=== PATIENT | female | born 1930 | race Two or more races ===

== ENCOUNTER 2016-09-21 00:59 | Inpatient (IN) | payer MEDICARE, OTHER ==
[~2016-09-21] VITALS: Ht 162.6 cm; Wt 96.2 kg
--- NOTE | 2016-09-21 01:05 | NUR ---
TO BED 5 AN 85 YO FEMALE BIBRA WITH C/O "FEVER/CHILLS/BODYACHES/VOMITED X1 SINCE 27." UPON ARRIVAL TO ER, PATIENT IS AAOX2-3, TACHYPNEIC AT 24, 94% ON ROOM AIR, WHEEZES AUSCULTATED ON UPPER AIRWAY, 100.5F TEMP PER OREM, SINUS TACHY ON MONITOR. NONDIAPHORETIC. KEPT HOB ELEVATED. INITIATED COMFORT MEASURES. FAMILY AT BEDSIDE.
--- NOTE | 2016-09-21 01:09 | NUR ---
DR WINTERS AT BEDSIDE TO EVAL.
[2016-09-21] MEDS ORDERED: ALBUTEROL FS 2.5 MG/3 ML VIAL.NEB ONE ×2 (01:18→02:12)
[2016-09-21] MEDS ORDERED: IPRATROPIUM NEB FS 0.5 MG/2.5 ML AMPUL.NEB ONE (01:18)
--- NOTE | 2016-09-21 01:25 | NUR ---
STARTED A SALINE LOCK ON THE RIGHT AC G20, BLOOD DRAWN AND SENT TO LAB.
[2016-09-21] MEDS ORDERED: CHOL100040 PO (01:29)
[2016-09-21] MEDS ORDERED: VENL75CA56 PO (01:29)
[2016-09-21] MEDS ORDERED: PRED5TAB48 PO (01:29)
[2016-09-21] MEDS ORDERED: EZET10TA PO (01:29)
[2016-09-21] MEDS ORDERED: OLME1TAB2 PO (01:29)
[2016-09-21] MEDS ORDERED: SIMV40TA5 PO (01:29)
[2016-09-21] MEDS ORDERED: APIX5TAB PO (01:29)
[2016-09-21] MEDS ORDERED: methylPREDNISolone SOD SUCC 125 MG/2ML VIAL IV ONE (01:30)
[2016-09-21] MEDS ORDERED: IPRATROPIUM NEB FS 0.5 MG/2.5 ML AMPUL.NEB NEB ONE (01:30)
[2016-09-21] MEDS ORDERED: methylPREDNISolone SOD SUCC 125 MG/2ML VIAL ONE (01:30)
[2016-09-21] MEDS ORDERED: ALBUTEROL FS 2.5 MG/3 ML VIAL.NEB CONTNEB ONE ×2 (01:30→03:00)
[2016-09-21] MEDS ORDERED: CEFTRIAXONE 1GM BAG (ER ONLY) 50 ML IV ONE ×2 (01:30)
[2016-09-21] MEDS ORDERED: ACETAMINOPHEN ES 500 MG TABLET PO ONE (01:30)
[2016-09-21] MEDS ORDERED: IV NS 0.9% 1,000 ML BAG IV ONE ×2 (01:30→15:30)
[2016-09-21] MEDS ORDERED: ACETAMINOPHEN ES 500 MG TABLET ONE (01:31)
--- NOTE | 2016-09-21 01:35 | NUR ---
inserted quiles catheter aseptically per Dr Arredondo's order, drained about 80cc of cloudy urine. urine collected and called lab for picker packer.
[2016-09-21 01:38] LABS: EOSINOPHILS # (AUTO) 0.1 /CMM (0.0-0.7); EOSINOPHILS % (AUTO) 0.4 % (0.0-6.0); HEMATOCRIT 33 % (33-45); HEMOGLOBIN 10.7 g/dL (11.5-14.8); LYMPHOCYTES # (AUTO) 1.1 /CMM (0.8-4.8); LYMPHOCYTES % (AUTO) 8.6 % (20.0-44.0); MEAN CORPUSCULAR HEMOGLOBIN 30 PG (26.0-33.0); MEAN CORPUSCULAR HGB CONC 33 g/dl (31.0-36.0); MEAN CORPUSCULAR VOLUME 92 fL (82-100); MONOCYTES # (AUTO) 0.2 /CMM (0.1-1.30); MONOCYTES % (AUTO) 1.3 % (2.0-12.0); NEUTROPHILS # (AUTO) 11.8 /CMM (1.8-8.9); NEUTROPHILS % (AUTO) 89.7 % (43.0-81.0); PLATELET COUNT (AUTO) 235 /CMM (150-450); RDW COEFFICIENT OF VARIATION 13.8 (11.5-15.0); RED BLOOD CELL COUNT(AUTO) 3.53 MIL/uL (4.0-5.2); WHITE BLOOD COUNT (AUTO) 13.2 K/uL (4.3-11.0)
[2016-09-21 01:49] LABS: CALCIUM, SERUM 8.1 mg/dL (8.5-10.1); CARBON DIOXIDE 27 mmol/L (21-32); CHLORIDE 104 mmol/L (98-107); CREATININE 1.2 mg/dL (0.6-1.3); GLUCOSE 140 mg/dL (74-106); POTASSIUM 4.3 mmol/L (3.5-5.1); SODIUM SERUM 141 mmol/L (136-145); UREA NITROGEN, BLOOD 45 mg/dL (7-18)
[2016-09-21 01:52] LABS: INR 0.98 (0.87-1.13); PROTHROMBIN TIME 10.5 SECS (9.5-12.7)
[2016-09-21] MEDS ORDERED: IOHEXOL-350 100 ML VIAL IV ONE (02:00)
[2016-09-21] MEDS ORDERED: IV NS 0.9% 250 ML IV ONE (02:02)
[2016-09-21 02:06] LABS: TROPONIN I 0.069 ng/mL (0.00-0.056)
[2016-09-21 02:08] LABS: ALANINE AMINOTRANSFERASE 24 U/L (12-78); ALKALINE PHOSPHATASE 77 U/L (46-116); ASPARTATE AMINOTRANSFERASE 18 U/L (15-37); B-TYPE NATRIURETIC PEPTIDE 126 PG/ML (0-125); BILIRUBIN,DIRECT 0.1 mg/dL (0.0-0.2); BILIRUBIN,TOTAL 0.4 mg/dL (0.2-1.0); TOTAL PROTEIN, SERUM 7.3 g/dL (6.4-8.2)
--- NOTE | 2016-09-21 02:20 | NUR ---
PATIENT TO CT.
[2016-09-21 02:29] LABS: APPEARANCE,URINE CLOUDY (CLEAR); BILIRUBIN,URINE NEGATIVE (NEGATIVE); BLOOD, URINE 3+ Ery/uL (NEGATIVE); COLOR,URINE YELLOW (YELLOW); KETONES,URINE NEGATIVE (NEGATIVE); LEUKOCYTE ESTERASE ,URINE 1+ (NEGATIVE); NITRITE, URINE POSITIVE (NEGATIVE); PROTEIN,URINE 1+ mg/dl (NEGATIVE); UGLUCOSE NEGATIVE (NEGATIVE); UROBILINOGEN,URINE 0.2 EU/dL (0.2)
[2016-09-21 02:39] LABS: BACTERIA,URINE 4+ /HPF (None Seen); SQUAMOUS EPITHELIAL CELL,UR Rare /HPF (None Seen); WBC,URINE TOO NUMEROUS TO COUN /HPF (0-3)
--- NOTE | 2016-09-21 02:43 | NUR ---
Report given to Edmar RN for admission and sean.
--- NOTE | 2016-09-21 02:49 | NUR ---
ongoing breathing treatment by RT Reilly.
[2016-09-21] MEDS ORDERED: NITROGLYCERIN PACKET 1 GM PACKET ONE (04:22)
[2016-09-21] MEDS ORDERED: ASPIRIN 81 MG TAB.CHEW ONE (04:22)
[2016-09-21] MEDS ORDERED: NITROGLYCERIN PACKET 1 GM PACKET TD ONE (04:30)
[2016-09-21] MEDS ORDERED: ASPIRIN 81 MG TAB.CHEW PO ONE (04:30)
--- NOTE | 2016-09-21 05:13 | NUR ---
Transferred to tele bed 324-1 via als protocol, no incident noted.
--- NOTE | 2016-09-21 05:15 | NUR ---
CREDIT UNDERWRITER ADMIT PT ARRIVED ON UNIT. AAOX3, GIBRALTARIAN SPEAKING. ADMITTED FOR SEPSIS. DENIES CP/SOB. TELE SHOWS ST WITH PVCS IN 100'S. SKIN WARM TO TOUCH AND SHE IS NON-DIAPHORETIC. IV INTACT AND PATENT. F/C DRAINING YELLOW FLUID. SKIN ISSUES NOTED. AMBULATORY WITH 4WW. VSS, NO DISTRESS AT THIS T8IME. ORIENTATED TO UNIT AND CALL LIGHT, WILL CONT TO MONITOR. RECEIVED ROCEPHIN AND 2.6 L NS IN E.R.
[2016-09-21] MEDS ORDERED: CEFTRIAXONE 1 G in IV D5W 50 ML IV SCH (05:30)
[2016-09-21] MEDS ORDERED: ACETAMINOPHEN 325 MG TABLET PO PRN (05:30)
[2016-09-21] MEDS ORDERED: MAG HYDROX/AL HYDROX/SIMETH 30 ML UDC PO PRN (05:30)
[2016-09-21] MEDS ORDERED: ONDANSETRON HCL/PF 4 MG/2 ML VIAL IVP PRN (05:30)
[2016-09-21] MEDS ORDERED: MAGNESIUM HYDROXIDE 30 ML UDC PO PRN (05:30)
[2016-09-21] MEDS ORDERED: ZOLPIDEM TARTRATE 5 MG TABLET PO PRN (05:30)
[2016-09-21] MEDS ORDERED: Z GUARD REMEDY 2 OZ OINT TP PRN (05:30)
[2016-09-21 05:51] VITALS: BP 116/51
--- NOTE | 2016-09-21 07:27 | NUR ---
SLIDE FASTENER CHAIN ASSEMBLER OPENING NOTE REPORT RECEIVED. PATIENT'S DAUGHTER AT THE BEDSIDE. COMPLETED MEDICATION RECONCILIATION WITH THE DAUGHTER. TOOK NOTES WILL REPORT TO MD/PHARMACY. PATIENT RESTING IN BED COMFORTABLY. DENIED PAIN/DISCOMFORT. VS WNL. LISA LOCKED, SIDE RAILS X2,. LOW POSITION, ALL NEEDS WITHIN REACH. WILL COME BACK FOE DAILY ASSESSMENT EXTERNAL MONITOR READING SINUS RHYTHM WITH HR 103 WITH OCCASIONAL PVCS.
[2016-09-21] MEDS ORDERED: INSU3INS6 SUBCUT (07:42)
[2016-09-21] MEDS ORDERED: MIRT15TA7 PO (07:42)
[2016-09-21] MEDS ORDERED: ACAR50TA3 PO (07:42)
[2016-09-21] MEDS ORDERED: NATE60TA PO (07:42)
[2016-09-21 08:00] VITALS: BP 100/48
[2016-09-21] MEDS ORDERED: predniSONE 5 MG TABLET PO SCH (08:30)
[2016-09-21] MEDS: OLMESARTAN PO SCH (09:00)
[2016-09-21] MEDS ORDERED: EZETIMIBE 10 MG TABLET PO SCH (09:00)
[2016-09-21] MEDS ORDERED: SIMVASTATIN 40 MG TABLET PO SCH (09:00)
[2016-09-21] MEDS: HYDROCHLOROTHIAZIDE PO SCH (09:00)
[2016-09-21] MEDS ORDERED: APIXABAN 5 MG TABLET PO SCH (09:00)
[2016-09-21] MEDS: predniSONE 5 MG TABLET PO SCH (09:35)
[2016-09-21] MEDS: VENLAFAXINE XR 75 MG CAP.SR.24H PO SCH (09:35)
[2016-09-21] MEDS ORDERED: APIXABAN 2.5 MG TABLET PO SCH ×3 (09:47→21:00)
--- NOTE | 2016-09-21 09:52 | NUR ---
WEARING APPAREL SHAKER NOTES INFORMED VIA MESSAGE OF INCREASE IN TROPONIN LEVEL. VS WNL, STABLE, ASYMPTOMATIC. NO NEW ORDERS AT THIS TIME.
--- NOTE | 2016-09-21 10:54 | NUR ---
LOCKSTITCH TOPSTITCHER NOTES MD AWARE PATIENT DIABETIC. AWAITING ORDERS. MD WILL F/U WITH PHARMACY IN RE TO ELIQUIS MG DOSAGE
[2016-09-21] MEDS ORDERED: IV NS 0.9% 1,000 ML IV PRN ×2 (11:00)
[2016-09-21 11:30] VITALS: BP 90/60
[2016-09-21] MEDS ORDERED: DEXTROSE 50%-WATER 50 ML DISP.SYRIN IV PRN (11:30)
[2016-09-21 12:00] VITALS: BP_SYST 104; BP_DIAS 61; BP_DIAS 65
--- NOTE | 2016-09-21 12:58 | NUR ---
BASEBALL GLOVE STUFFER NOTE ACCUCHECK MACHINES ARE NOT WORKING. LAB IS AWARE. MACHINES ARE TAKEN TO THE LAB FOR MAINTENANCE. WILL ASSESS BG ONE THE ACCUCHECKS ARE HERE.
--- NOTE | 2016-09-21 14:00 | NUR ---
HEAT REGULATOR NOTES DR SHABAZZ AT BEDSIDE. PATIENT STABLE
[2016-09-21] MEDS: BLOOD SUGAR DIAGNOSTIC 1 EACH STRIP IN SCH ×3 (14:57→21:05)
[2016-09-21] MEDS: INSULIN REGULAR, HUMAN 100 UNIT/ML 3 ML VIAL SQ PRN ×3 (15:00→21:13)
--- NOTE | 2016-09-21 15:20 | NUR ---
DIRECTOR FOOD SAFETY NOTES NOTIFIED MD SHABAZZ PATIENT LACTIC ACID WENT UP S/P BOLUS THIS AM. PER MD ORDER ANOTHER 1 LITER NS BOLUS
--- NOTE | 2016-09-21 15:47 | NUR ---
SCREEN PRINTING STENCIL PREPARER NOTES PATIENT HAS NO COMPLAINTS NO COMPLICATIONS. APPEARS STABLE AT THIS TIME. PER MD ORDER BOLUS 1L NS IS RUNNING . IV SITE INTACT PATENT NO S/S INFILTRATION
--- NOTE | 2016-09-21 16:05 | NUR ---
CRIME SCENE SPECIALIST NOTES MD SHABAZZ AWARE OF INCREASE IN TROPONINS WELL. NO NEW ORDERS. PATIENT STABLE AT THIS TIME. NO COMPLAINTS. RESTING WELL
[2016-09-21 16:24] VITALS: BP 127/72
--- NOTE | 2016-09-21 18:13 | NUR ---
METAL MOULDER NOTES DR SHABAZZ STATES IF PATIENT IS TAKING 5 MG PO ELIQUIS Q12H AT HOME CONTINUE THIS AT HOSPITAL.
--- NOTE | 2016-09-21 19:39 | NUR ---
SHEET METAL SHOP HELPER CLOSING NOTE PATIENT IS COMFORTABLY RESTING IN BED. DENIES PAIN/DISCOMFORT. IV PATENT, NS FLOWING AT 100ML/HR. PATIENT'S DAUGHTER AT THE BEDSIDE. ALL NEEDS WITHIN REACH. EXTERNAL MONITOR READING SINUS RHYTHM WITH PVS'S HR 90 Addendum: 09/21/16 at 1944 by MICHELLE GILLIS RN WILL ENDORCE TO ASSISTANT PUBLIC DEFENDER NURSE FOR CONTINUATION OF CARE.
--- NOTE | 2016-09-21 19:50 | NUR ---
VALIDATION ANALYST NOTE: PATIENT RESTING IN BED, NO ACUTE DISTRESS NOTED. BREATHING EVEN AND UNLABORED, NO SOB NOTED. TELE READING SINUS TACHY 105 WITH PVC. IV TO RAC IN PLACE, INFUSING NS AT 100 ML/HR. STERLING CATHETER IN PLACE, EMPTY AT THIS TIME. BED LOCKED AND IN LOWEST POSITION, CALL LIGHT IN REACH. WILL CONTINUE TO MONITOR.
[2016-09-21 20:00] VITALS: BP 115/68
[2016-09-21] MEDS: SIMVASTATIN 40 MG TABLET PO SCH (21:04)
[2016-09-21] MEDS: EZETIMIBE 10 MG TABLET PO SCH (21:05)
[2016-09-21] MEDS: MIRTAZAPINE 15 MG TABLET PO SCH (21:05)
[2016-09-21] MEDS: INSULIN DETEMIR 100 UNIT/ML CARTRIDGE SQ SCH (21:12)
--- NOTE | 2016-09-21 21:15 | NUR ---
SCHOOL YEAR NANNY NOTE: PATIENT BLOOD SUGAR LEVEL 185 MG/DL, PATIENT TO RECEIVE 3 UNIT OF INSULIN PER SLIDING SCALE AND LEVEMIR 6 UNITS PER MD ORDER. NO S/S OF HYPER/HYPOGLYCEMIA NOTED. WILL CONTINUE TO MONITOR.
--- NOTE | 2016-09-21 22:00 | NUR ---
WORKING SUPERVISOR NOTE: PATIENT DAUGHTER STATES THAT PATIENT TAKES A CANNABIS OIL TABLET ORAL TWICE A DAY NEEDED FOR PAIN. WANTED TO KNOW IF PATIENT SHOULD CONTINUE TO TAKE MEDICATION. PATIENT DAUGHTER DOES NOT KNOW EXACT DOSE. WILL FOLLOW UP DURING DAY.
[2016-09-21] MEDS: CEFTRIAXONE 1 G in IV D5W 50 ML IV SCH (23:20)
[2016-09-22] VITALS: BP 100/62
--- NOTE | 2016-09-22 06:25 | NUR ---
METAL CAN INSPECTOR NOTE: PATIENT RESTING IN BED, NO ACUTE DISTRESS NOTED. BREATHING EVEN AND UNLABORED, NO SOB NOTED. TELE READING SR 78 WITH PVC. IV TO RAC IN PLACE, INFUSING NS AT 100 ML/HR. STERLING CATHETER IN PLACE. PATIENT BLOOD SUGAR LEVEL 127 MG/DL, NO INSULIN NEEDED PER SLIDING SCALE. NO S/S OF HYPER/HYPOGLYCEMIA NOTED. BED LOCKED AND IN LOWEST POSITION, CALL LIGHT IN REACH. WILL ENDORSE TO DAY NURSE TO CONTINUE WITH PLAN OF CARE.
[2016-09-22] MEDS: BLOOD SUGAR DIAGNOSTIC 1 EACH STRIP IN SCH ×4 (06:34→21:34)
[2016-09-22 07:15] LABS: BASOPHILS % (AUTO) 0.1 % (0.0-2.0); HEMATOCRIT 27 % (33-45); LYMPHOCYTES # (AUTO) 1.3 /CMM (0.8-4.8); LYMPHOCYTES % (AUTO) 7.4 % (20.0-44.0); MEAN CORPUSCULAR HEMOGLOBIN 31 PG (26.0-33.0); MEAN CORPUSCULAR HGB CONC 33 g/dl (31.0-36.0); MEAN CORPUSCULAR VOLUME 93 fL (82-100); MONOCYTES # (AUTO) 0.8 /CMM (0.1-1.30); MONOCYTES % (AUTO) 4.4 % (2.0-12.0); NEUTROPHILS # (AUTO) 15.9 /CMM (1.8-8.9); NEUTROPHILS % (AUTO) 88.1 % (43.0-81.0); PLATELET COUNT (AUTO) 197 /CMM (150-450); RDW COEFFICIENT OF VARIATION 14.3 (11.5-15.0); RED BLOOD CELL COUNT(AUTO) 2.93 MIL/uL (4.0-5.2)
[2016-09-22 07:38] LABS: CHOLESTEROL 127 mg/dL (<200); HDL CHOLESTEROL 64 mg/dL (40-60); LDL 53 mg/dL (0-99); TRIGLYCERIDES 37 mg/dL (30-150)
[2016-09-22 07:54] LABS: CALCIUM, SERUM 7.2 mg/dL (8.5-10.1); CARBON DIOXIDE 23 mmol/L (21-32); CHLORIDE 112 mmol/L (98-107); CREATININE 1.1 mg/dL (0.6-1.3); GLUCOSE 125 mg/dL (74-106); MAGNESIUM 1.6 mg/dL (1.8-2.4); POTASSIUM 4.6 mmol/L (3.5-5.1); SODIUM SERUM 146 mmol/L (136-145); UREA NITROGEN, BLOOD 46 mg/dL (7-18)
--- NOTE | 2016-09-22 07:56 | NUR ---
RN OPENING NOTES PATIENT IS RESTING QUIETLY IN BED WITH EYES OPEN. PATIENT IS A/OX3. PATIENT SATURATING ADEQUATELY WITH O2 RUNNING AT 3L/MIN. PATIENT HAS NO COMPLAINTS OF PAIN AT THIS TIME. TELE READING IS SR 78 WITH OCCASIONAL PVC'S. PATIENT DENIES SOB. NO S/S OF ACUTE DISTRESS. NO S/S OF HYPO/HYPERGLYCEMIA. RESPIRATIONS EVEN AND UNLABORED. BED LOCKED IN THE LOWEST POSITION WITH SIDE RAILS UP X2. CALL LIGHT WITHIN REACH. WILL CONTINUE TO MONITOR, ASSESS AND EDUCATE PATIENT.
[2016-09-22 08:00] VITALS: BP 100/60
[2016-09-22] MEDS ORDERED: FUROSEMIDE 20 MG/2 ML VIAL IV ONE (08:30)
--- NOTE | 2016-09-22 08:36 | NUR ---
RN NOTES AUDIBLE WHEEZING HEARD DURING PATIENT INTERACTION. IV NS AT 100ML/HR STOPPED. DR. RUDY WELDON MD TO D/C IV FLUIDS. ORDER FOR LASIX TO BE GIVEN ONE TIME. WILL CARRY OUT ORDERS.
[2016-09-22] MEDS: VENLAFAXINE XR 75 MG CAP.SR.24H PO SCH (08:40)
[2016-09-22] MEDS: predniSONE 5 MG TABLET PO SCH (08:40)
[2016-09-22] MEDS: APIXABAN 5 MG TABLET PO SCH ×2 (08:40→20:56)
[2016-09-22] MEDS: OLMESARTAN PO SCH (08:41)
[2016-09-22] MEDS: HYDROCHLOROTHIAZIDE PO SCH (08:41)
--- NOTE | 2016-09-22 09:35 | NUR ---
RN NOTES FOR ORDER REPORTED MAGNESIUM LEVEL TO DR. JENNINGS. MG LEVEL 1.6. VERBAL ORDER TO GIVE 2GM IV MG BOLUS. WILL PLACE AND CARRY OUT ORDERS.
[2016-09-22] MEDS: Magnesium 1GM/D5W 100ML PREMIX 100 ML IV SCH ×2 (09:51→11:29)
[2016-09-22] MEDS: INSULIN REGULAR, HUMAN 100 UNIT/ML 3 ML VIAL SQ PRN (11:34)
[2016-09-22 12:00] VITALS: BP 147/71
[2016-09-22 16:00] VITALS: BP 111/58
[2016-09-22] MEDS ORDERED: ACETAMINOPHEN ES 500 MG TABLET PO PRN (18:30)
--- NOTE | 2016-09-22 18:30 | NUR ---
RN NOTES FOR ORDERS NOTIFIED DR. JENNINGS OF PATIENT FAMILY CONCERNS. PATIENT RECEIVES CANNABIS OIL SUPPLEMENTS AND HAS MEDICATIONS IN THE HOSPITAL. VERBAL ORDERS GIVEN FOR TYLENOL EXTRA STRENGTH AN ALTERNATIVE MED FOR PAIN CONTROL OTHER THEN CANNABIS OIL. PATIENT HAS AUDIBLE AND AUSCULTATED WHEEZING. ORDERS GIVEN FOR ALBUTEROL NEB 2.5 G Q4 PRN. WILL CARRY OUT ORDERS DISCUSSED WITH .
[2016-09-22] MEDS: ALBUTEROL FS 2.5 MG/0.5 ML VIAL.NEB NEB PRN (18:50)
--- NOTE | 2016-09-22 19:25 | NUR ---
RN OPENING NOTES PATIENT RESTING COMFORTABLY IN BED. NO COMPLAINTS OF PAIN AT THIS TIME. IV PATENT AND INTACT IN RAC. BREATHING TREATMENT DONE. STERLING IN PLACE AND DRAINING. NO S/S OF HYPO/HYPERGLYCEMIA. RESPIRATIONS EVEN AND UNLABORED. DENIES SOB AT THIS TIME. ALL NEEDS MET. ALL MEDS GIVEN. BED LOCKED IN THE LOWEST POSITION. SIDE RAILS UP X2. CALL LIGHT WITHIN REACH. REPORT GIVEN TO NIGHT RN FOR CONTINUATION OF CARE.
--- NOTE | 2016-09-22 19:30 | NUR ---
CONSUMER SERVICES CONSULTANT NOTES RECEIVED RESTING COMFORTABLY ON BED,A/O X3,NO SOB,O2 N USED AT 2LITERS/NC TO KEEP O2 SAT ABOVE 90%.SALINE LOCK RIGHT AC INTACT AND PATENT.STERLING CATH IN PLACE DRAINING CLEAR YELLOW OUTPUT.VISITORS AT BEDSIDE.DENIES CHEST DISCOMFORTS.CALL LIGHT IN REACH,NEEDS ANTICIPATED.
[2016-09-22 19:57] VITALS: BP 125/76
[2016-09-22 20:00] VITALS: BP 125/76
[2016-09-22] MEDS: EZETIMIBE 10 MG TABLET PO SCH (21:38)
[2016-09-22] MEDS: MIRTAZAPINE 15 MG TABLET PO SCH (21:38)
[2016-09-22] MEDS: SIMVASTATIN 40 MG TABLET PO SCH (21:38)
[2016-09-22] MEDS: INSULIN DETEMIR 100 UNIT/ML CARTRIDGE SQ SCH (21:45)
--- NOTE | 2016-09-22 22:00 | NUR ---
QUARANTINE INSPECTOR NOTES ACCU-CHECK BLOOD SUGAR CHECK 118,NO INSULIN COVERAGE,REFUSED LEVEMIR 6 UNITS SCHEDULED
[2016-09-22] MEDS: CEFTRIAXONE 1 G in IV D5W 50 ML IV SCH (22:53)
--- NOTE | 2016-09-22 23:00 | NUR ---
CAP SEWER NOTES DUE CLAUDIA 1GM IVPB HUNG
[2016-09-23] VITALS (7 sets, daily range): BP systolic 110–139; BP diastolic 51–68
--- NOTE | 2016-09-23 05:00 | NUR ---
SENIOR CARE SPECIALIST NOTES NOTED MILD WHEEZING,CALLED RT TO ADMINISTER BREATHING TX SCHEDULED PRN
--- NOTE | 2016-09-23 05:15 | NUR ---
BRAILLE TRANSLATOR NOTES RT AT BEDSIDE ADMINISTERING BREATHING ORDERED
[2016-09-23] MEDS: ALBUTEROL FS 2.5 MG/0.5 ML VIAL.NEB NEB PRN ×2 (05:33→12:36)
[2016-09-23] MEDS: BLOOD SUGAR DIAGNOSTIC 1 EACH STRIP IN SCH ×4 (05:49→21:11)
--- NOTE | 2016-09-23 05:53 | NUR ---
PAID INTERN NOTES ACCU-CHECK BLOOD SUGAR CHECK 91,NO INSULIN COVERAGE.
--- NOTE | 2016-09-23 07:09 | NUR ---
WASH RACK OPERATOR NOTES AWAKE,ASSISTED TO SIT UP.SHE WANTS STERLING TO BE REMOVE.WILL FOLLOW WITH MD TODAY.CALL LIGHT IN REACH.NEEDS ATTENDED,WILL ENDORSE TO DAY NURSE FOR RANI.
--- NOTE | 2016-09-23 07:46 | NUR ---
RN OPENING NOTES PATIENT IS SITTING AT THE EDGE OF BED WITH FAMILY AT BEDSIDE. PATIENT IS A/OX3. PATIENT SATURATING ADEQUATELY WITH O2 RUNNING AT 3L/MIN. PATIENT IS COMPLAINING OF DISCOMFORT AT THE STERLING SITE. TELE READING IS SR 103 WITH OCCASIONAL PVC'S. IV SITE RAC 20G. SITE IS PATENT AND INTACT. PATIENT DENIES SOB. NO S/S OF ACUTE DISTRESS. NO S/S OF HYPO/HYPERGLYCEMIA. RESPIRATIONS EVEN AND UNLABORED. BED LOCKED IN THE LOWEST POSITION. CALL LIGHT WITHIN REACH. WILL CONTINUE TO MONITOR, ASSESS AND EDUCATE PATIENT.
[2016-09-23] MEDS: VENLAFAXINE XR 75 MG CAP.SR.24H PO SCH (08:02)
[2016-09-23] MEDS: predniSONE 5 MG TABLET PO SCH (08:02)
[2016-09-23] MEDS: APIXABAN 5 MG TABLET PO SCH ×2 (08:03→21:11)
[2016-09-23] MEDS: OLMESARTAN PO SCH (08:03)
[2016-09-23] MEDS: HYDROCHLOROTHIAZIDE PO SCH (08:03)
--- NOTE | 2016-09-23 08:40 | NUR ---
RN NOTES PATIENT FAMILY CONCERNED WITH STERLING CATHETER DISCOMFORT. NOTIFIED DR. JENNINGS. VERBAL ORDERS GIVEN TO D/C FC. WILL CARRY OUT ORDERS GIVEN.
--- NOTE | 2016-09-23 08:46 | NUR ---
RN NOTES FC D/C PER MD ORDERS. BALLOON DEFLATED. 8ML EXTRACTED. PATIENT TOLERATING PROCEDURE WELL. PATIENT TO BE CLEANED AND DIAPER PLACED. WILL CONTINUE TO MONITOR.
--- NOTE | 2016-09-23 11:26 | NUR ---
RN NOTES PATIENT D/C TELE
[2016-09-23] MEDS ORDERED: FUROSEMIDE 20 MG/2 ML VIAL IV ONE (11:30)
[2016-09-23] MEDS: INSULIN REGULAR, HUMAN 100 UNIT/ML 3 ML VIAL SQ PRN ×3 (12:03→21:12)
--- NOTE | 2016-09-23 18:26 | NUR ---
RN CLOSING NOTES PATIENT IS LAYING IN BED COMFORTABLE WITH EYES CLOSED WITH FAMILY AT BEDSIDE. PATIENT IS A/OX3. PATIENT SATURATING ADEQUATELY WITH O2 RUNNING AT 3L/MIN. PATIENT WAS D/C'D FROM TELE. D/C'D STERLING. IV SITE RAC 20G. SITE IS PATENT AND INTACT. PATIENT DENIES SOB. NO S/S OF ACUTE DISTRESS. LAST BS WAS 165 AND 3 UNITS WE GIVEN. NO S/S OF HYPO/HYPERGLYCEMIA. RESPIRATIONS EVEN AND UNLABORED. ALL NEEDS MET. ALL MEDS GIVEN APPROPRIATE. BED LOCKED IN THE LOWEST POSITION WITH SIDE RAILS UP X2. CALL LIGHT WITHIN REACH. WILL GIVE REPORT TO INTERNAL CONTROLS ANALYST RN FOR CONTINUATION OF CARE.
--- NOTE | 2016-09-23 19:40 | NUR ---
MS RN NOTE RECEIVED PATIENT FROM DAY SHIFT,PATIENT IS ALERT AND ORIENTEDX3, NO S/S OF RESPIRATORY DISTRESS, GETTING OXYGEN 3L/MIN VIA NC, NO PAIN REPORTED WELL. IV ON RIGHT AC IS PATENT AND INTACT, HL ONLY. PATIENT IS ABLE TO WALK WITH A WALKER AND ASSIST. SRX2, BED IN LOW POSITION, CALL LIGHT WITHIN REACH, WILL CONTINUE TO MONITOR PATIENT.
[2016-09-23] MEDS: SIMVASTATIN 40 MG TABLET PO SCH (21:11)
[2016-09-23] MEDS: MIRTAZAPINE 15 MG TABLET PO SCH (21:11)
[2016-09-23] MEDS: EZETIMIBE 10 MG TABLET PO SCH (21:11)
[2016-09-23] MEDS: INSULIN DETEMIR 100 UNIT/ML CARTRIDGE SQ SCH (21:13)
[2016-09-23] MEDS ORDERED: CEFTRIAXONE 1 G VIAL ONE (22:15)
[2016-09-23] MEDS: CEFTRIAXONE 1 G in IV D5W 50 ML IV SCH (22:36)
--- NOTE | 2016-09-23 22:45 | NUR ---
MS RN NOTE PATIENT'S ROCEPHIN 1G IV BAG WAS NOT AVAILABLE IN THE MED ROOM, G ROYCE BACA ALSO DOUBLE CHECKED. HAD TO OVERRIDE THE MEDICATION AND ADMINISTER IT.
[2016-09-24] MEDS: BLOOD SUGAR DIAGNOSTIC 1 EACH STRIP IN SCH ×4 (06:12→21:40)
--- NOTE | 2016-09-24 06:55 | NUR ---
MS RN NOTE PATIENT IS RESTING IN BED COMFORTABLY, NO S/S OF RESPIRATORY DISTRESS OR PAIN AT THIS TIME. IV ON LEFT AC IS PATENT AND INTACT, HL ONLY. NO ACUTE DISTRESS NOTED THROUGHOUT THE NIGHT. WILL ENDORSE TO DAY SHIFT FOR RANI.
--- NOTE | 2016-09-24 07:43 | NUR ---
MS RN NOTE RECEIVED PATIENT RESTING IN BED ALERT AND ORIENTEDX3, NO FORM OF DISTRESS NOTED, NO S/S OF RESPIRATORY DISTRESS, ON OXYGEN 3L/MIN VIA NC, DENIES PAIN AT THIS TIME. IV TO RIGHT AC IS PATENT AND INTACT, HL ONLY. PATIENT IS ABLE TO WALK WITH A WALKER AND ASSIST. SAFETY MEASURES RENDERED, SRX2, BED IN LOW POSITION, CALL LIGHT WITHIN REACH, WILL CONTINUE TO MONITOR PATIENT.
[2016-09-24 08:00] VITALS: BP 131/70
[2016-09-24] MEDS: VENLAFAXINE XR 75 MG CAP.SR.24H PO SCH (09:18)
[2016-09-24] MEDS: HYDROCODONE/APAP 5/325MG 1 EACH TABLET PO PRN ×2 (09:18→16:50)
[2016-09-24] MEDS: predniSONE 5 MG TABLET PO SCH (09:18)
[2016-09-24] MEDS: APIXABAN 5 MG TABLET PO SCH ×2 (09:19→21:42)
[2016-09-24] MEDS: OLMESARTAN PO SCH (09:19)
[2016-09-24] MEDS: HYDROCHLOROTHIAZIDE PO SCH (09:19)
[2016-09-24 09:34] LABS: BASOPHILS % (AUTO) 0.1 % (0.0-2.0); EOSINOPHILS # (AUTO) 0.2 /CMM (0.0-0.7); EOSINOPHILS % (AUTO) 1.7 % (0.0-6.0); HEMATOCRIT 30 % (33-45); HEMOGLOBIN 9.7 g/dL (11.5-14.8); LYMPHOCYTES % (AUTO) 19.8 % (20.0-44.0); MEAN CORPUSCULAR HEMOGLOBIN 31 PG (26.0-33.0); MEAN CORPUSCULAR HGB CONC 33 g/dl (31.0-36.0); MEAN CORPUSCULAR VOLUME 93 fL (82-100); MONOCYTES # (AUTO) 0.5 /CMM (0.1-1.30); MONOCYTES % (AUTO) 4.7 % (2.0-12.0); NEUTROPHILS # (AUTO) 7.4 /CMM (1.8-8.9); NEUTROPHILS % (AUTO) 73.7 % (43.0-81.0); PLATELET COUNT (AUTO) 225 /CMM (150-450); RDW COEFFICIENT OF VARIATION 13.8 (11.5-15.0); RED BLOOD CELL COUNT(AUTO) 3.19 MIL/uL (4.0-5.2)
[2016-09-24 09:48] LABS: CALCIUM, SERUM 8.3 mg/dL (8.5-10.1); CARBON DIOXIDE 30 mmol/L (21-32); CHLORIDE 107 mmol/L (98-107); CREATININE 1.2 mg/dL (0.6-1.3); GLUCOSE 120 mg/dL (74-106); MAGNESIUM 1.8 mg/dL (1.8-2.4); PHOSPHORUS 3.8 mg/dL (2.5-4.9); POTASSIUM 3.7 mmol/L (3.5-5.1); SODIUM SERUM 144 mmol/L (136-145); UREA NITROGEN, BLOOD 36 mg/dL (7-18)
[2016-09-24] MEDS: ALBUTEROL FS 2.5 MG/0.5 ML VIAL.NEB NEB PRN ×2 (09:57→19:30)
[2016-09-24] MEDS ORDERED: LEVO500T15 PO (11:26)
--- NOTE | 2016-09-24 12:30 | NUR ---
MS/RN NOTES 1200 FINGERSTICK 137MG/DL NO INSULIN COVERAGE D/T PATIENT NOT EATING.
[2016-09-24] MEDS ORDERED: FUROSEMIDE 20 MG/2 ML VIAL IV ONE (13:00)
--- NOTE | 2016-09-24 13:59 | NUR ---
MS/RN NOTES ORDER FOR DISCHARGE HOWEVER PATIENTS DAUGHTER REQUESTED PATIENT TO STAY ANOTHER DAY FOR ANTIBIOTIC THERAPY AND REPEAT OF UA. MARYA INFORMED AND STATED THAT THE PATIENT MAY STAY ANOTHER DAY IF COVERED BY INSURANCE. CM AWARE AND PERMITTED PATIENT TO STAY ANOTHER NIGHT. NOTED PATIENT WHEEZING HEAVENLY ORDERS OBTAINED FOR Q6 HOUR BREATHING TX AND FUROSEMIDE .
--- NOTE | 2016-09-24 15:28 | NUR ---
MS/RN NOTES PATIENT RESTING IN BED COMFORTABLY, DENIES ANY DISCOMFORT OR PAIN AT THIS TIME. NO CHANGES IN CONDITION, STABLE AT THIS TIME. WILL CONTINUE TO MONITOR.
[2016-09-24 16:34] VITALS: BP 132/67
[2016-09-24] MEDS: INSULIN REGULAR, HUMAN 100 UNIT/ML 3 ML VIAL SQ PRN ×2 (17:55→21:45)
--- NOTE | 2016-09-24 19:24 | NUR ---
MS/RN NOTES PATIENT RESTING IN BED COMFORTABLY, NO SIGNIFICANT CHANGES NOTED. STABLE. ALL DUE MEDIATIONS GIVEN, ALL NEEDS MET AND ATTENDED. BREATHING TX RECEIVED NEEDED FOR WHEEZING AND SOB, ON 02 VIA MT. PATIENT KEPT SAFE AND COMFORTABLE. SAFETY MEASURES RENDERED, CALL LIGHT PLACED WITHIN REACH, BED ALARM ON. WILL ENDORSE CARE TO BASKET ASSEMBLER FOR RANI.
--- NOTE | 2016-09-24 19:30 | NUR ---
MS RN OPENING NOTES: PATIENT IN BED, AOX3, ON ON AT 3 LPM VIA NC, BREATHING EVEN AND UNLABORED, SLIGHT EXPIRATORY WHEEZING HEARD OVER UPPER LUNG FILEDS, BUT NO SOB NOTED. MAINTAINED HOB ELEVATED. PIV OVER RAC G 20 INTACT AND PATENT TO FLUSH. PROVIDED FOR COMFORT AND SAFETY. BED IN LOWEST AND LOCKED POSITION, SIDERAILS UP X3, BED ALARMS ON. WILL CONT TO MONITOR.
[2016-09-24 20:00] VITALS: BP 129/69
[2016-09-24] MEDS: EZETIMIBE 10 MG TABLET PO SCH (21:42)
[2016-09-24] MEDS: SIMVASTATIN 40 MG TABLET PO SCH (21:42)
[2016-09-24] MEDS: MIRTAZAPINE 15 MG TABLET PO SCH (21:42)
[2016-09-24] MEDS: INSULIN DETEMIR 100 UNIT/ML CARTRIDGE SQ SCH (21:45)
--- NOTE | 2016-09-24 22:00 | NUR ---
RN NOTES: PATIENT'S BLOOD SUGAR CHECKED AT 217 MG/DL. ADMINISTERED 4 UNITS REGULAR INSULIN PER ISS, AND SHCEDULED 6 UNITS OF LEVEMIR. LIGHT SNACK GIVEN TO PATIENT. WILL CONT TO MONITOR.
[2016-09-24] MEDS: CEFTRIAXONE 1 G in IV D5W 50 ML IV SCH (22:38)
--- NOTE | 2016-09-25 05:42 | NUR ---
RN NOTES: PATIENT NOTED TO BE WHEEZING UPON AUSCULTATION. REQUESTED FOR BREATHING TREATMENT FROM RT.
[2016-09-25] MEDS: ALBUTEROL FS 2.5 MG/0.5 ML VIAL.NEB NEB PRN (06:01)
[2016-09-25] MEDS: BLOOD SUGAR DIAGNOSTIC 1 EACH STRIP IN SCH (06:33)
--- NOTE | 2016-09-25 06:41 | NUR ---
MS RN CLOSING NOTES: PATIENT IN BED, AOX3, ON O2 AT 3 LPM VIA NC, BREATHING EVEN AND UNLABORED. PIV OVER RAC G 20 INTACT AND PATENT TO FLUSH. BLOOD SUGAR CHECKED AT 86 MG/DL, NO INSULIN COVERAGE NEEDED AT THIS TIME. DUE MEDS GIVEN, PROVIDED FOR COMFORT AND SAFETY. NO ACUTE CHANGE IN CONDITION NOTED THROUGH SHIFT. BED IN LOWEST AND LOCKED POSITION, SIDERAILS UP X3. WILL ENDORSE TO AM RN FOR RANI.
[2016-09-25 06:51] LABS: BASOPHILS % (AUTO) 0.3 % (0.0-2.0); EOSINOPHILS # (AUTO) 0.3 /CMM (0.0-0.7); EOSINOPHILS % (AUTO) 2.6 % (0.0-6.0); HEMATOCRIT 32 % (33-45); HEMOGLOBIN 10.6 g/dL (11.5-14.8); LYMPHOCYTES # (AUTO) 2.2 /CMM (0.8-4.8); LYMPHOCYTES % (AUTO) 21.1 % (20.0-44.0); MEAN CORPUSCULAR HEMOGLOBIN 31 PG (26.0-33.0); MEAN CORPUSCULAR HGB CONC 33 g/dl (31.0-36.0); MEAN CORPUSCULAR VOLUME 93 fL (82-100); MONOCYTES # (AUTO) 0.6 /CMM (0.1-1.30); NEUTROPHILS # (AUTO) 7.4 /CMM (1.8-8.9); PLATELET COUNT (AUTO) 279 /CMM (150-450); RDW COEFFICIENT OF VARIATION 13.6 (11.5-15.0); RED BLOOD CELL COUNT(AUTO) 3.41 MIL/uL (4.0-5.2); WHITE BLOOD COUNT (AUTO) 10.6 K/uL (4.3-11.0)
[2016-09-25 06:53] LABS: CALCIUM, SERUM 8.9 mg/dL (8.5-10.1); CARBON DIOXIDE 32 mmol/L (21-32); CHLORIDE 106 mmol/L (98-107); CREATININE 1.2 mg/dL (0.6-1.3); GLUCOSE 85 mg/dL (74-106); MAGNESIUM 1.6 mg/dL (1.8-2.4); PHOSPHORUS 4.8 mg/dL (2.5-4.9); POTASSIUM 3.7 mmol/L (3.5-5.1); SODIUM SERUM 145 mmol/L (136-145); UREA NITROGEN, BLOOD 47 mg/dL (7-18)
--- NOTE | 2016-09-25 07:38 | NUR ---
MS/RN OPENING NOTE PATIENT RECEIVED IN BED IN STABLE CONDITION. ALERT AND ORIENTED TIMES 3. NO COMPLAIN OF PAIN OR DISCOMFORT AT THIS TIME. ALL NEEDS ATTENDED TO AT THIS TIME. CALL LIGHT IN REACH. WILL CONTINUE TO MONITOR TO ENSURE SAFETY.
[2016-09-25 08:00] VITALS: BP 116/56
[2016-09-25] MEDS: predniSONE 5 MG TABLET PO SCH (08:23)
[2016-09-25] MEDS: VENLAFAXINE XR 75 MG CAP.SR.24H PO SCH (08:23)
[2016-09-25] MEDS: HYDROCHLOROTHIAZIDE PO SCH (09:25)
[2016-09-25] MEDS: OLMESARTAN PO SCH (09:25)
[2016-09-25] MEDS: APIXABAN 5 MG TABLET PO SCH (09:41)
--- NOTE | 2016-09-25 09:44 | NUR ---
MS/RN Unable to scan medication Unable to scan patients eliquis 5mg morning dose. While attempting to scan medication, screen on [facility] shows that medication has been discontinued. Order history checked and shows that order is still active. Pharmacy called, spoke with Ayan. Told to administer dose via unscheduled medication route. Again attempted to rescan but still unable to do so, as after scanning, the previous discontinued order of 2.5mg is highlighted.
--- NOTE | 2016-09-25 10:00 | NUR ---
MS/RN S/B Dr Molina Seen by Dr Molina - patient to be discharged to home today, prescription for levaquin sent electronically to patient's pharmacy.
[2016-09-25] MEDS ORDERED: MAGNESIUM OXIDE 400 MG TABLET PO ONE (11:00)
--- NOTE | 2016-09-25 12:11 | NUR ---
MS/rail flaw detector operator Patient discharged to home in stable condition. Name bands and heplock removed, pressure dressing applied. Exit care printed and signed by patient (family at bedside acting as food and drug research scientist). Prescription for levaquin sent electronically to patient's preferred pharmacy, made aware that the entire course of medication should be completed, even if feeling better.Patient educated as to the importance of following up with her primary care doctor, daughter stated that she would prefer to make the appointment. Informed patient about signs and symptoms and when to seek medical help and return to the nearest emergency room. Per patient, all were understood. Assisted patient to get dressed, all personal belongings signed for on belongings list. Assisted to wheelchair, escorted to main lobby by NARROW GAUGE BRAKEMAN and family.
[2016-09-27] MEDS ORDERED: ERGOCALCIFEROL (VITAMIN D 2) 50,000 UNIT CAPSULE PO SCH (09:00)
== END 2016-09-25 12:00 | disposition home or self-care (01) | DRG 871 ==
LOC: ER 01:01 → TELE 04:43 → MED 09-23 10:38
PROVIDERS: ADMIT Family Medicine; ATTEND Family Medicine
DX: A41.51 Sepsis due to Escherichia coli [E. coli] (principal); I50.33 Acute on chronic diastolic (congestive) heart failure; I21.4 Non-ST elevation (NSTEMI) myocardial infarction; E87.2 Acidosis; N39.0 Urinary tract infection, site not specified; E44.1 Mild protein-calorie malnutrition; E11.9 Type 2 diabetes mellitus without complications; R65.20 Severe sepsis without septic shock; E78.5 Hyperlipidemia, unspecified; Z79.01 Long term (current) use of anticoagulants; Z86.718 Personal history of other venous thrombosis and embolism; E66.9 Obesity, unspecified; I70.90 Unspecified atherosclerosis; K57.90 Diverticulosis of intestine, part unspecified, without perforation or abscess without bleeding; M19.90 Unspecified osteoarthritis, unspecified site; I11.0 Hypertensive heart disease with heart failure; Z68.36 Body mass index [BMI] 36.0-36.9, adult; J45.909 Unspecified asthma, uncomplicated; K21.9 Gastro-esophageal reflux disease without esophagitis; M81.0 Age-related osteoporosis without current pathological fracture; Z96.649 Presence of unspecified artificial hip joint
CPT/HCPCS: 36415; 71010-TC; 71250-TC; 80048-TC; 80061-TC; 80076-TC; 81000-TC; 82010-TC; 82962-TC; 83605-TC; 83735-TC; 83880; 84100-TC; 84484-TC; 85025-TC; 85730-TC; 87040-TC; 87081-TC; 87086-TC; 87186-TC; 87400; 93307-TC; A4606; J0696; J1815; J1940; J2930; J3475; J7030; J7050; J7060; J7512; Q9967; Z7610